=== PATIENT | female | born 1980 | race Caucasian/White ===

== ENCOUNTER 2022-07-16 15:55 | Outpatient (CLI) | payer OTHER, SELFPAY ==
--- NOTE | ~2022-07-16 | XR_ITS ---
EXAMINATION: XR foot LT 2V, XR foot RT 2V DATE: 07/16/2022 16:29 INDICATION: Chronic pain and swelling to the anterior bilateral feet. TECHNIQUE: 1. Dorsoplantar and lateral views of the left foot were obtained. 2. Dorsoplantar and lateral views of the right foot were obtained. COMPARISON: None. FINDINGS: Bone alignment is normal at the bilateral feet. No fractures. Relatively symmetric mild osteoarthriti s at the bilateral first metacarpophalangeal joints and several bilateral tarsometatarsal and interph alangeal joints. No erosions or periosteal reaction. Small right and moderate sized left plantar calc aneal spurs. Soft tissues are unremarkable. IMPRESSION: 1. 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 Reviewed, dictated and finalized at location A. IMPRESSION: 1. 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
== END 2022-07-16 15:56 | disposition home or self-care (01) ==
PROVIDERS: PCP Family Medicine; Visit Provider Family Medicine
DX: M19.071 Primary osteoarthritis, right ankle and foot (principal); M19.072 Primary osteoarthritis, left ankle and foot
CPT/HCPCS: 73620

== ENCOUNTER 2022-09-13 11:01 | Outpatient (CLI) | payer OTHER, SELFPAY ==
--- NOTE | ~2022-09-13 | XR_ITS ---
EXAMINATION: HAND-LUDIVINA ARTHRITIS 3+VIEWS DATE: 09/13/2022 11:25 INDICATION: Arthritis. TECHNIQUE: Posteroanterior, lateral, and oblique views of the left and of the right hands as well as a ballcatchers view of both hands were obtained. COMPARISON: None. FINDINGS: Alignment is normal at both hands. No fracture. Mild osteoarthritis at the bilateral distal radioulna r, left first carpometacarpal and bilateral first metacarpophalangeal and right first interphalangeal joints characterized by mild nonuniform joint space narrowing and/or tiny marginal osteophytes. Ther e is additional joint space narrowing at multiple interphalangeal and metacarpophalangeal joints whic h appears more uniform and without evident osteophytosis which remains equivocal for either osteoarth ritis or inflammatory arthritis. There are however no erosions to more specifically suggest an inflam matory arthritis. There is periarticular soft tissue swelling about many of the proximal interphalang eal joints. IMPRESSION: 1. Joint space narrowing at multiple joints of the bilateral hands and wrists, few with typical distr ibution for osteoarthritis and with either nonuniform joint space narrowing and/or tiny marginal oste ophytes. The joint space narrowing however it and if the metacarpophalangeal and interphalangeal join ts appears more uniform and without appreciable associated osteophytosis, with particular soft tissue swelling but without evident erosions and this could represent additional osteoarthritis but differe ntial would also include nonspecific inflammatory arthritides such as rheumatoid, reactive or psoriat ic arthritis. Reviewed, dictated and finalized at location D. ILE TECH IMPRESSION: 1. Joint space narrowing at multiple joints of the bilateral hands and wrists, few with typical distribution for osteoarthritis and with either nonuniform jerry nt space narrowing and/or tiny marginal osteophytes. The joint space narrowing however it and if the metacarpophalangeal and interphalangeal joints appears mo re uniform and without appreciable associated osteophytosis, with particular so ft tissue swelling but without evident erosions and this could represent additi onal osteoarthritis but differential would also include nonspecific inflammator y arthritides such as rheumatoid, reactive or psoriatic arthritis.
== END 2022-09-13 11:02 | disposition home or self-care (01) ==
LOC: ANHIMG 11:05
PROVIDERS: PCP Family Medicine; Visit Provider Internal Medicine
DX: F17.200 Nicotine dependence, unspecified, uncomplicated (principal); M79.671 Pain in right foot; M79.672 Pain in left foot; R76.8 Other specified abnormal immunological findings in serum
CPT/HCPCS: 73130

== ENCOUNTER 2022-10-15 12:28 | Outpatient (CLI) | payer OTHER, SELFPAY ==
--- NOTE | ~2022-10-15 | MR_ITS ---
EXAMINATION: MR foot LT wo/w con DATE: 10/15/2022 14:55 INDICATION: Left foot pain TECHNIQUE: 1. Magnetic resonance imaging (MRI) of the left foot excluding portions of the posterior aspect of th e hindfoot was performed without and with 15 mL Multihance intravenous contrast. Sequences included s agittal T1-weighted FSE, sagittal fluid sensitive FSE STIR, coronal PD-weighted FS FSE, coronal T1-we ighted FSE, axial PD-weighted FS FSE, axial T2-weighted FSE and axial T1-weighted FS FSE. Postcontras t axial, sagittal and coronal T1-weighted FS FSE were also obtained. 2. MRI of the right foot excludi ng portions of the posterior aspect of the hindfoot was performed without and with 15 mL MultiHance i ntravenous contrast utilizing the same contrast bolus. Sequences included sagittal T1-weighted FSE, s agittal fluid sensitive FSE STIR, coronal PD-weighted FS FSE, coronal T1-weighted FSE, axial PD-weigh ly FS FSE, axial T2-weighted FSE and axial T1-weighted FS FSE. Postcontrast axial, sagittal and kayley nal T1-weighted FS FSE were also obtained. COMPARISON: None FINDINGS: Left foot: Bone alignment is normal. No fracture or pathologic marrow replacing process. Mild to moderate osteoa rthritis with mild subarticular edema-like signal changes at the naviculocuneiform joint. Prominent e nhancing synovitis and 5 x 5 x 5 mm ganglion cyst along the dorsal margin of the navicular cuneiform articulation. Additional mild polyarticular osteoarthritis at the first metatarsophalangeal, the rick culocuneiform and several tarsal metatarsal and interphalangeal joints. Mild tendinopathy and longitu dinal split tearing of the peroneus tertius tendon extending to the fifth toe. There is an intrasubst ance ganglion cyst within the tendon beginning at the level of the talonavicular joint and extending approximately 4.5 cm distally to its insertion at the base of the fourth and fifth metatarsals where there is extensive tendons extension of a couple additional adjacent small ganglion cysts measuring u p to 4 mm in maximal diameter. There is an additional long fusiform ganglion cyst measuring 3.3 cm pr oximal to distal 6 x 4 mm maximal orthogonal dimensions extending along the myotendinous junction of the interosseous muscle between the fourth and fifth metatarsals. The Lisfranc ligament complex as we ll as the collateral ligament complex at the metatarsophalangeal and interphalangeal joints are lore l. Right foot: Bone alignment is normal. No acute fracture or pathologic marrow replacing process. Chronic nonunited fracture at the base of the fifth metatarsal. There is mild osteoarthritis at the naviculocuneiform, tarsal metatarsal, first metatarsophalangeal and several interphalangeal joints. Mild marrow edema i nvolving the small proximal fragment underlying its articulation with the cuboid likely related to se condary osteoarthritis. Additional mild polyarticular osteoarthritis at the first metatarsophalangeal , the naviculocuneiform and several tarsal metatarsal and interphalangeal joints. There is a large pe ripherally enhancing ganglion cyst measuring 3.3 x 1.4 x 1.3 cm arising from the dorsal aspect of the naviculocuneiform articulation. Mild tenosynovitis along the normal-appearing distal peroneus longus tendon. No joint effusions or other abnormal fluid collections. The remaining visualized portions of the flexor and extensor tendons are normal. Lisfranc ligament complex as well as the collateral liga ment complexes at the metatarsophalangeal and interphalangeal joints are normal. Intrinsic musculatur e of the foot is unremarkable. IMPRESSION: 1. Nondisplaced chronic nonunited intra-articular fracture at the lateral base of the first right fif th metatarsal and with secondary osteoarthritis with subarticular edema at the proximal fragment gadeil g its articulation with the cuboid. 2. Tendinopathy and intrasubstance ganglion c
--- NOTE | ~2022-10-15 | MR_ITS ---
EXAMINATION: MR foot LT wo/w con DATE: 10/15/2022 14:55 INDICATION: Left foot pain TECHNIQUE: 1. Magnetic resonance imaging (MRI) of the left foot excluding portions of the posterior aspect of th e hindfoot was performed without and with 15 mL Multihance intravenous contrast. Sequences included s agittal T1-weighted FSE, sagittal fluid sensitive FSE STIR, coronal PD-weighted FS FSE, coronal T1-we ighted FSE, axial PD-weighted FS FSE, axial T2-weighted FSE and axial T1-weighted FS FSE. Postcontras t axial, sagittal and coronal T1-weighted FS FSE were also obtained. 2. MRI of the right foot excluding portions of the posterior aspect of the hindfoot was performed wit hout and with 15 mL MultiHance intravenous contrast utilizing the same contrast bolus. Sequences incl uded sagittal T1-weighted FSE, sagittal fluid sensitive FSE STIR, coronal PD-weighted FS FSE, coronal T1-weighted FSE, axial PD-weighted FS FSE, axial T2-weighted FSE and axial T1-weighted FS FSE. Postc ontrast axial, sagittal and coronal T1-weighted FS FSE were also obtained. COMPARISON: None FINDINGS: Left foot: Bone alignment is normal. No fracture or pathologic marrow replacing process. Mild to moderate osteoa rthritis with mild subarticular edema-like signal changes at the naviculocuneiform joint. Prominent e nhancing synovitis and 5 x 5 x 5 mm ganglion cyst along the dorsal margin of the navicular cuneiform articulation. Additional mild polyarticular osteoarthritis at the first metatarsophalangeal, the rick culocuneiform and several tarsal metatarsal and interphalangeal joints. Mild tendinopathy and longitu dinal split tearing of the peroneus tertius tendon extending to the fifth toe. There is an intrasubst ance ganglion cyst within the tendon beginning at the level of the talonavicular joint and extending approximately 4.5 cm distally to its insertion at the base of the fourth and fifth metatarsals where there is extensive tendons extension of a couple additional adjacent small ganglion cysts measuring u p to 4 mm in maximal diameter. There is an additional long fusiform ganglion cyst measuring 3.3 cm pr oximal to distal 6 x 4 mm maximal orthogonal dimensions extending along the myotendinous junction of the interosseous muscle between the fourth and fifth metatarsals. The Lisfranc ligament complex as we ll as the collateral ligament complex at the metatarsophalangeal and interphalangeal joints are lore l. Right foot: Bone alignment is normal. No acute fracture or pathologic marrow replacing process. Chronic nonunited fracture at the base of the fifth metatarsal. There is mild osteoarthritis at the naviculocuneiform, tarsal metatarsal, first metatarsophalangeal and several interphalangeal joints. Mild marrow edema i nvolving the small proximal fragment underlying its articulation with the cuboid likely related to se condary osteoarthritis. Additional mild polyarticular osteoarthritis at the first metatarsophalangeal , the naviculocuneiform and several tarsal metatarsal and interphalangeal joints. There is a large pe ripherally enhancing ganglion cyst measuring 3.3 x 1.4 x 1.3 cm arising from the dorsal aspect of the naviculocuneiform articulation. Mild tenosynovitis along the normal-appearing distal peroneus longus tendon. No joint effusions or other abnormal fluid collections. The remaining visualized portions of the flexor and extensor tendons are normal. Lisfranc ligament complex as well as the collateral liga ment complexes at the metatarsophalangeal and interphalangeal joints are normal. Intrinsic musculatur e of the foot is unremarkable. IMPRESSION: 1. Nondisplaced chronic nonunited intra-articular fracture at the lateral base of the first right fif th metatarsal and with secondary osteoarthritis with subarticular edema at the proximal fragment gadiel g its articulation with the cuboid. 2. Tendinopathy and intrasubstance ganglion cyst extendi
== END 2022-10-15 12:29 ==
LOC: MICIMG 12:29
PROVIDERS: PCP Family Medicine; Visit Provider Internal Medicine
DX: M79.672 Pain in left foot (principal); S92.354K Nondisplaced fracture of fifth metatarsal bone, right foot, subsequent encounter for fracture with nonunion; X58.XXXD Exposure to other specified factors, subsequent encounter; M19.071 Primary osteoarthritis, right ankle and foot
CPT/HCPCS: 73720; A9577

== ENCOUNTER 2022-12-24 05:55 | Day surgery (SDC) | payer OTHER, SELFPAY ==
[2022-12-14 08:42] VITALS: BMI 29.5
--- NOTE | 2022-12-23 12:24 | WPDANESEPPF ---
Anes - Initial Pre Proc Eval Procedure: Operation Date: 12/24/22 07:30 Proposed Procedures p Removal Fracture Fragment Right Fifth Metatarsal Base - Devonte Valle JR, MD s Peroneal Tendon Repair Right Foot - Devonte Valle JR, MD Date/Time: 12/23/22 12:24 Surgeon: Devonte Valle JR, MD Pre Op Diagnosis: RT 5th Metatarsal Base Frac. & Peroneal Tendopathy Patient Data Age: 42 Gender: F Height: 1.68 m Weight: 83 kg Allergies Allergy/AdvReac Type Severity Reaction Status Date / Time No Known Allergies Allergy Verified 10/18/22 13:18 Home Medications Medication Instructions Recorded Confirmed Type hydroxychloroquine 200 mg tablet 200 mg PO BID #180 tabs 10/18/22 12/24/22 Rx (Plaquenil) Patient hx anesthesia problems: none Family hx anesthesia problems: none Results Review: All pre-operative results and documents have been reviewed as part of the pre-operative evaluation. [facility] Past Medical History Medical History (Updated 12/23/22 @ 12:25 by Jason Stephens DO) IUD (intrauterine device) in place SLE (systemic lupus erythematosus) Family History Family History Father Asthma Mother Depression Son Asthma Social History Social History Social History: Single Smoking packs per day: 0.5 Smoking cigarettes per day: 10.0 Years smoked: 20 Smoking pack-years: 10.00 Smoking status: Current every day smoker Tobacco type: cigarettes Second hand tobacco smoke exposure: No Alcohol intake: current Alcohol use details: OCCASSIONAL Substance use: never Substance use type: does not use Living arrangements: with family Occupation/Education: occupation Gender identity (if verbalized by the patient): Female Sexual Orientation (if Verbalized by the Patient): Straight or Heterosexual Spiritual care concerns: No Anes - Eval Final PreProcedure Day of Procedure 12/23/22 12:24 Patient weight: overweight Heart: regular rate and rhythm Lungs: clear to auscultation Airway: Mallampati scale class II Neurological: alert and oriented Last oral intake: >/= 8 hours ASA classification: III Emergent: no Anesthetic plan: proceed Anesthesia type and monitoring: general ETT and standard monitoring Results Review: All pre-operative results and documents have been reviewed as part of the pre-operative evaluation. Informed Consent: The patient's anesthetic plan and its attendant risks and benefits were discussed with the patient/family/POA. Questions were solicited and answers provided to the satisfaction of the patient/family/POA.
[2022-12-24] VITALS (10 sets, daily range): BP systolic 107–131; BP diastolic 64–88; PULSE 64–73; RESP 12–16; TEMP 36.2–36.7; O2SAT 99–100; BMI 29.2
--- NOTE | ~2022-12-24 | XR_ITS ---
EXAMINATION: XR surgery orthopedic DATE: 12/24/2022 08:15 INDICATION: Fracture fragment removal at the base of the right fifth metatarsal. TECHNIQUE: 2 fluoroscopic images of the right foot were obtained during procedure performed by Dr. Maida park. Radiologist was not present for the imaging or procedure. Total DAP was 7.4 mGycm^2 . COMPARISON: None. FINDINGS: Initial image demonstrates a metallic probe likely for marking projecting over a chronic nonunited fr acture fragment at the lateral base of the fifth metatarsal. Subsequent image demonstrates expected s mall amount of soft tissue gas at the site of the now resected ossicle. IMPRESSION: 1. Fluoroscopy utilized during resection of a chronic nonunited fracture fragment at the lateral base of the right fifth metatarsal. Reviewed, dictated and finalized at location A. ENT STATION ATTENDANT IMPRESSION: 1. Fluoroscopy utilized during resection of a chronic nonunited fracture fragme nt at the lateral base of the right fifth metatarsal.
[2022-12-24] MEDS: LACTATED RINGERS 1,000 ML 30 ML IV CONT ×2 (06:41→08:55)
--- NOTE | 2022-12-24 07:21 | WPDHPUPDATE1 ---
History and Physical Update Update Date/Time: 12/24/22 07:21 History and Physical has been reviewed, including an updated exam of the patient. There are NO changes in the patient's condition. Risks, benefits, and alternatives have been discussed and questions answered. Patient agrees to proceed with procedure.
[2022-12-24] MEDS: ceFAZolin SODIUM 2 GM/20 ML SW SYRINGE IV PUSH (07:23)
[2022-12-24] MEDS: LIDOCAINE HCL 2% LOCAL INJ 20 ML VIAL 10 ML INFILTRATE (08:00)
--- NOTE | 2022-12-24 09:01 | W.PM.PROC2 ---
Procedure Note - Detailed Date of Procedure 12/24/22 Pre-op Diagnosis 1. Right 5th metatarsal base avulsion fracture with a non union 2. Peroneal tendinopaty with longitudinal split tearing Post-op Diagnosis Other (1. Right 5th metatarsal base avulsion fracture with non union 2. Peroneal tenosynovitis right foot) Procedure Performed 1. Removal of non union of an avulsion fracture from the base of the 5th metatarsal right foot with reattachment of the peroneus brevis tendon. 2. Peroneal tenosynovitis right foot Surgeon Devonte Valle JR, DPM Anesthesia General and Local Indications Painful lateral right midfoot Findings 1. Avulsion fracture with fibrous pseudoarthrosis to the 5th metatarsal base 2. No longitudinal tearing of the peroneal tendons, tenosynovitis of the peroneus brevis tendon right foot Description of Procedure PROCEDURE IN DETAIL: Under mild sedation, the patient was brought into the operating room, placed on the operating table in supine position. A pneumatic thigh tourniquet was placed about the patient's ipsilateral limb. Following general anesthesia, a local anesthetic block was obtained about the right leg along the common peroneal nerve and also 4cm proximal to the utilizing 20 cc of a one to one mix of 2% Lidocain plain and 0.5% Marcaine plain. The foot was then scrubbed, prepped, and draped in the usual aseptic manner. An Esmarch bandage was then used to exsanguinate the patient's foot and the pneumatic thigh tourniquet was then inflated. Surgery began in the following manner: Attention was directed to the lateral aspect of the right hindfoot and ankle where a curvilinear incision was made from the lateral malleolus to the 5th metatarsal base. The incision was dissection was continued down to the level of the periosteum and capsular structures overlying the small fracture fragment. The avulsed bone was excised and freed from the peroneus brevis tendon there was a pseudoarthrosis with the 5th metatarsal base. Fluoroscopy was used to make certain that the entire fragment was excised. Next, the tagged distal portion of the peroneus brevis tendon was advanced and secured to the fifth metatarsal base with an Arthrex [place] bone anchor and provided suture. Next the peroneus brevis and longus sheaths were opened and the tendons visualized. No split tearing was noted. No ganglion cyst was noted. Peroneal tenosynovitis was present at the base of the 5th metatarsal portion of the peroneus brevis tendon, this was excised. The wound site was flushed with copious amounts of sterile saline. The peroneal sheath was repaired with 4-0 Vicryl. Next, the subcutaneous structures were reapproximated with 4-0 Vicryl. Next, the skin was reapproximated and coapted utilizing 4-0 Monocryl in running subcuticular suture fashion technique. Upon completion of the procedure, the incision was dressed with Steri-Strips, Adaptic, 4x4s, Kerlix, and Coban. The pneumatic ankle tourniquet was then deflated and a prompt hyperemic response was noted to all digits of the foot. A posterior splint was then applied to the affected lower extremity. It is important to note that Dr. Valle was present throughout the procedure. The patient did very well with the procedure and the anesthesia. She was transferred to the recovery room with vital signs stable and vascular status intact to all toes of the ipsilateral foot. Following a period of postoperative monitoring, the patient will be discharged home on the following written and oral postoperative instructions: 1. Keep the dressing clean, dry, and intact. 2. The patient to be strictly nonweightbearing with a knee scooter or crutches. 3. The patient should ice and elevate the foot when at rest. 4. The patient should contact Dr. Valle for all postop care and if any problems should arise. 5. Prescriptions were written for Percocet 5/325, dispensed 40 to be taken 1 p.o. q.4-6 hours as needed for satya
[2022-12-24] MEDS: fentaNYL CITRATE INJ (*CRX) 100 MCG/2 ML VIAL 25 MCG IV PUSH ×3 (09:17→09:48)
--- NOTE | 2022-12-24 10:23 | SUR.PHASEII ---
1005; PT AWAKE AND ALERT. STATES PAIN TO ANKLE AREA 11/09. FAMILY AT BEDSIDE. PT ASKING WHEN SHE CAN GO HOME.
[2022-12-24] MEDS: oxyCODONE HCL (*CRX) 5 MG TAB IR PO (10:30)
--- NOTE | 2022-12-24 10:32 | SUR.PHASEII ---
OXYCODONE TAKEN PO. INSTRUCTED PT AND FAMILY, NO OXYCODONE FOR 4 HOURS.
--- NOTE | 2022-12-24 10:54 | SUR.PHASEI ---
0900-ice pack applied to area behind right knee- patient resting comfortably on stretcher- carrying on conversation with staff members-brisk capillary refill noted
--- NOTE | 2022-12-24 11:00 | WPDANESPN ---
Anes - Prog Note Post-Op Date/Time: 12/24/22 11:00 Cardiovascular status: normal Respiratory status: normal Airway patency: baseline Mental status: baseline Post-Op hydration status: normal Vital Signs: Last Vital Signs Temp 36.2 C L 12/24/22 08:55 Pulse 64 12/24/22 10:35 Resp 16 12/24/22 10:35 BP 117/70 12/24/22 10:35 Pulse Ox 100 12/24/22 10:02 O2 Del Method Room Air 12/24/22 10:35 O2 Flow Rate 8 12/24/22 08:55 Pain Score (VAS): 0 I/O: Intake & Output 12/23/22 12/24/22 12/24/22 23:59 07:59 15:59 Intake Total 750 Balance 750 Post-procedural complaints: none Patient Feedback: Patient satisfied with anesthetic care. Other Findings: Patient vital signs back to baseline. Patient denies nausea and vomiting. Patient's pain under control. Patient OK for discharge.
== END 2022-12-24 10:42 | disposition home or self-care (01) ==
PROVIDERS: PCP Family Medicine; Visit Provider Podiatrist Foot & Ankle Surgery
PROC: (CPT 28322; principal; 2022-12-24 07:30)
PROC: (CPT 28322; 2022-12-24 07:30)
DX: S92.351K Displaced fracture of fifth metatarsal bone, right foot, subsequent encounter for fracture with nonunion (principal)
CPT/HCPCS: 28322; 28086; 99199

== ENCOUNTER 2024-01-24 13:18 | Outpatient (CLI) | payer OTHER, SELFPAY ==
--- NOTE | ~2024-01-24 | US_ITS ---
EXAMINATION: US pelvic complete DATE: 01/24/2024 13:36 INDICATION: Verify IUD placement. Comparison:No prior studies for comparison. TECHNIQUE: Multiple transabdominal and endovaginal sonographic images of the pelvis performed. FINDINGS: The uterus measures 7.9 x 4.1 x 5 cm. IUD present in the endometrium. The endometrial compl ex measures 4 mm. The right ovary measures 4.1 x 2.9 x 3.5 cm and the left ovary measures 2.5 x 2.2 x 3.3 cm. There ar e small follicles in each ovary. Normal doppler signal in both ovaries. There is no free fluid in the pelvis. There are no abnormal masses seen on either side. IMPRESSION: 1. Unremarkable pelvic ultrasound. IUD in expected position in the endometrium. Reviewed, dictated and finalized at location L.
== END 2024-01-24 13:19 ==
LOC: MICIMG 13:19
DX: T83.32XA Displacement of intrauterine contraceptive device, initial encounter (principal)
CPT/HCPCS: 76856

== ENCOUNTER 2024-03-16 13:33 | Outpatient (CLI) | payer OTHER, SELFPAY ==
--- NOTE | ~2024-03-16 | MM_ITS ---
EXAMINATION: MM screening he BI w be HISTORY: Screening mammogram TECHNIQUE: Craniocaudal and mediolateral oblique 3-D tomosynthesis images were obtained and synthetic 2-D images were generated. CAD analysis was submitted and interpreted. COMPARISON: No prior mammogram is available for comparison at this institution. BREAST PARENCHYMAL COMPOSITION: There are scattered areas of fibroglandular density. FINDINGS: Microcalcifications are noted in the lower central right breast. Diagnostic right mammogram with magnification views is recommended, with ultrasound if required. Otherwise no suspicious mass, architectural distortion, malignant calcification, skin thickening or r etraction of either breast is detected. IMPRESSION: 1. Group microcalcifications, lower central right breast 2. Diagnostic right mammogram with magnification views is recommended, with ultrasound if required BI-RADS Category 0: Incomplete: Needs additional imaging evaluation. Reviewed, dictated and finalized at location B. IMPRESSION: 1. Group microcalcifications, lower central right breast 2. Diagnostic right mammogram with magnification views is recommended, with ult rasound if required BI-RADS Category 0: Incomplete: Needs additional imaging evaluation.
== END 2024-03-16 13:34 ==
LOC: MICIMG 13:33
PROVIDERS: PCP Physician Assistant; Visit Provider Physician Assistant
DX: Z12.31 Encounter for screening mammogram for malignant neoplasm of breast (principal); R92.8 Other abnormal and inconclusive findings on diagnostic imaging of breast
CPT/HCPCS: 77063; 77067

== ENCOUNTER 2024-04-13 07:53 | Outpatient (CLI) | payer OTHER, SELFPAY ==
--- NOTE | ~2024-04-13 | MM_ITS ---
EXAMINATION: MM diagnostic mammo unilat RT HISTORY: Follow-up right breast calcifications TECHNIQUE: Additional 3-D tomosynthesis images of the right breast were performed and synthetic 2-D i mages were generated. CAD analysis was submitted and interpreted. COMPARISON: 03/16/2024 BREAST PARENCHYMAL COMPOSITION: Not dense: There are scattered areas of fibroglandular density. FINDINGS: There is a cluster of pleomorphic calcifications in the lower central aspect of the right b reast, middle third. There are no suspicious areas of architectural distortion. No discrete mass. IMPRESSION: 1. Clustered pleomorphic right breast calcifications lower central right breast middle third. 2. Stereotactic right breast biopsy recommended. BI-RADS category 4, suspicious findings. Reviewed, dictated and finalized at location B.
== END 2024-04-13 07:54 ==
LOC: MICIMG 07:55
PROVIDERS: PCP Family Medicine; Visit Provider Physician Assistant
DX: R92.8 Other abnormal and inconclusive findings on diagnostic imaging of breast (principal)
CPT/HCPCS: 77065

== ENCOUNTER 2024-05-17 09:31 | Outpatient (CLI) | payer OTHER, SELFPAY ==
--- NOTE | ~2024-05-17 | MM_ITS ---
MM post biopsy invasive RT, MM stereotactic specimen RT, MM stereotactic bx RT EXAMINATION: MM post biopsy invasive RT, MM stereotactic specimen RT, MM stereotactic bx RT DATE: Edison Chandler M.D. INDICATION: Abnormal calcifications in the right breast. Stereotactic core biopsy is requested evalu ate for malignancy.] TECHNIQUE AND FINDINGS: The risks and potential benefits of the procedure were discussed with the patient and written informe d consent was obtained. The patient was placed in the prone position clustered at the table with the right breast in caudocranial compression, and the area of interest was localized and targeted utiliz ing digital imaging with stereotaxis. After sterile preparation of the skin, 1% lidocaine was utilized for local anesthesia at the skin pun cture site and 1% lidocaine with epinephrine was utilized for deeper local anesthesia/is about the bi opsy site. A 9G [employer] vacuum assisted biopsy needle was advanced to the level of the calcification o f interest from a caudal approach utilizing stereotactic guidance and a total of 6 tissue core biopsi es were obtained. A specimen radiograph demonstrates that the calcifications of interest are included within the tissue cores. A tissue marker clip was then placed at the biopsy site. The needle was removed and hemosta sis was achieved. The patient tolerated the procedure well and there is no evidence of significant i mmediate complication. The patient was given verbal as well as written postprocedural instructions p rior to discharge from the department. Tissue cores were submitted to surgical pathology for histolo gic analysis. A 2-view right unilateral digital mammogram was obtained post procedure and this demonstrates that th e tissue marker clip is in expected position.] IMPRESSION: 1. Successful stereotactic biopsy of calcifications in the lower central aspect of the right breast, followed by tissue marker clip placement. Please refer to pathology report for histologic analysis. Reviewed, dictated and finalized at location B. IMPRESSION: 1. Successful stereotactic biopsy of calcifications in the lower central aspec t of the right breast, followed by tissue marker clip placement. Please refer to pathology report for histologic analysis. IMPRESSION: 1. Successful stereotactic biopsy of calcifications in the lower central aspec t of the right breast, followed by tissue marker clip placement. Please refer to pathology report for histologic analysis.
== END 2024-05-17 09:32 | disposition home or self-care (01) ==
PROVIDERS: PCP Family Medicine; Visit Provider Surgery
DX: R92.0 Mammographic microcalcification found on diagnostic imaging of breast (principal); R92.8 Other abnormal and inconclusive findings on diagnostic imaging of breast
CPT/HCPCS: 19081; 88305; 88342

== ENCOUNTER 2024-06-13 08:54 | Outpatient (CLI) | payer OTHER, SELFPAY ==
--- NOTE | ~2024-06-13 | US_ITS ---
US breast RT limited 06/13/2024 09:26 Indication: Follow-up intraductal papilloma. Procedure: High-resolution Limited ultrasound of the right breast Comparison: Mammogram dated 04/13/2024 and 05/17/2024. No prior ultrasounds are available for compariso n. Findings: At 8:00, 3.5 cm from the nipple, there is a cystic structure measuring up to 1 cm with inte rnal solid echogenic foci measuring 3 mm. This may correspond to known intraductal papilloma. No othe r masses are identified. Impression: 1: Cystic mass of the right breast at 8:00, 3.5 cm from the nipple with 3 mm solid component. Recomme nd comparison to previous outside ultrasound. BI-RADS CATEGORY 0 - INCOMPLETE STUDY, NEED ADDITIONAL IMAGING EVALUATION. Reviewed, dictated and finalized at location B. Impression: 1: Cystic mass of the right breast at 8:00, 3.5 cm from the nipple with 3 mm so lid component. Recommend comparison to previous outside ultrasound. BI-RADS CATEGORY 0 - INCOMPLETE STUDY, NEED ADDITIONAL IMAGING EVALUATION.
== END 2024-06-13 08:55 ==
LOC: MICIMG 08:55
PROVIDERS: PCP Family Medicine; Visit Provider Surgery
DX: D24.9 Benign neoplasm of unspecified breast (principal); R92.2 Inconclusive mammogram
CPT/HCPCS: 76642

== ENCOUNTER 2025-01-01 08:16 | Outpatient (CLI) | payer OTHER, SELFPAY | END 2025-01-01 08:17 | disposition home or self-care (01) | LOC: MICIMG 08:17 | PROVIDERS: PCP Family Medicine; Visit Provider Surgery | DX: D24.1 Benign neoplasm of right breast (principal); R92.0 Mammographic microcalcification found on diagnostic imaging of breast; R92.8 Other abnormal and inconclusive findings on diagnostic imaging of breast | CPT/HCPCS: 76642; 77061; 77065; G0279 ==

== ENCOUNTER 2025-01-08 09:05 | Outpatient (CLI) | payer OTHER, SELFPAY ==
--- NOTE | ~2025-01-08 | XR_ITS ---
XR finger 1st RT min 2V Ordering provider: Liane Chauhan PA-C History: . M79.89 - Other specified soft tissue disorders . Comparison: None. FINDINGS: BONES: No acute fracture or dislocation. JOINT SPACES: Normal. SOFT TISSUES: Normal. IMPRESSION: No acute osseous abnormality. Reviewed, dictated and finalized at location A.
== END 2025-01-08 09:06 | disposition home or self-care (01) ==
LOC: MICIMG 09:07
PROVIDERS: PCP Family Medicine; Visit Provider Physician Assistant
DX: M79.89 Other specified soft tissue disorders (principal)
CPT/HCPCS: 73140

== ENCOUNTER 2025-03-19 07:06 | Outpatient (CLI) | payer OTHER, SELFPAY ==
--- NOTE | ~2025-03-19 | MR_ITS ---
EXAMINATION: MR foot LT wo con DATE: 03/19/2025 07:47 INDICATION: Left foot ganglion cyst TECHNIQUE: Magnetic resonance imaging (MRI) of the left fore/mid foot was performed without intraveno us contrast. Sequences included sagittal T1-weighted FSE, sagittal fluid sensitive FSE STIR, coronal PD-weighted FS FSE, coronal T1-weighted FSE, axial PD-weighted FS FSE, and axial PD-weighted FSE. Add itional axial PD-weighted FSE, coronal T1-weighted FSE and sagittal fluid sensitive FSE STIR sequence s were obtained of the left ankle, mid and hindfoot. COMPARISON: None FINDINGS: Bone alignment is normal. Normal bone marrow signal throughout with no fracture or pathologic marrow replacing process. 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 The stabiliz ing ligaments at the medial and lateral ankle, the spring ligament complex, Lisfranc ligament complex and collateral ligament complex at the metatarsophalangeal and interphalangeal joints are all normal . The Achilles tendon and remaining flexor tendons of the foot and ankle are normal. There is moderat e tendinopathy with longitudinal split tearing of the peroneus tertius tendon. There is a cluster of elongated intrasubstance ganglion cysts extending within and expanding the distal 5 cm of the tendon to its insertion at the base of the fifth metatarsal. At the same level of the naviculocuneiform zen culation there is an additional small ganglion cyst extending across the dorsal aspect of the otherwi se normal extensor digitorum longus tendons. The anterior tibial extensor hallucis longus tendons are normal. Physiologic amount fluid in the joint spaces. Transit MR osteo foot is unremarkable. IMPRESSION: 1. Moderate tendinopathy with longitudinal split tearing and a few elongated intrasubstance ganglion cysts within the distal 5 cm of the peroneus tertius tendon with additional smaller ganglion cyst ext ending over the dorsum of the extensor digitorum longus tendons. Reviewed, dictated and finalized at location A. IMPRESSION: 1. Moderate tendinopathy with longitudinal split tearing and a few elongated in trasubstance ganglion cysts within the distal 5 cm of the peroneus tertius tend on with additional smaller ganglion cyst extending over the dorsum of the exten sor digitorum longus tendons.
== END 2025-03-19 07:07 | disposition home or self-care (01) ==
LOC: MICIMG 07:07
PROVIDERS: PCP Family Medicine; Visit Provider Podiatrist Foot & Ankle Surgery
DX: M67.472 Ganglion, left ankle and foot (principal)
CPT/HCPCS: 73718

== ENCOUNTER 2025-04-01 01:46 | Day surgery (SDC) | payer OTHER, SELFPAY ==
[2025-03-22 14:47] VITALS: BMI 31.6
[2025-04-01 11:42] VITALS: BP 117/69; PULSE 82; RESP 16; TEMP 36.7; O2SAT 100
[2025-04-01 11:46] LABS: BEDSIDEPREGUCG Negative (Negative)
[2025-04-01] MEDS: LACTATED RINGERS 1,000 ML 150 ML IV CONT (12:01)
--- NOTE | 2025-04-01 12:44 | P.PNAN_ITS ---
Anes - Initial Pre Proc Eval Procedure: Operation Date: 04/01/25 13:00 Proposed Procedures p Colonoscopy - Godwin Miller MD Date/Time: 04/01/25 12:44 Surgeon: Godwin Miller MD Pre Op Diagnosis: Constipation, unspecified Patient Data Age: 44 Gender: F Height: 1.68 m Weight: 90 kg Last Vital Signs Temp 36.7 C 04/01/25 11:42 Pulse 82 04/01/25 11:42 Resp 16 04/01/25 11:42 BP 117/69 04/01/25 11:42 Pulse Ox 100 04/01/25 11:42 O2 Del Method Room Air 04/01/25 11:42 Allergies Allergy/AdvReac Type Severity Reaction Status Date / Time No Known Allergies Allergy Verified 03/22/25 14:37 Home Medications ?Medication ?Instructions ?Recorded ?Confirmed ?Type hydroxychloroquine 200 mg tablet 200 mg PO BID #180 tabs 03/05/24 04/01/25 Rx (Plaquenil) diclofenac sodium 75 mg 75 mg PO BID 11/14/24 04/01/25 History tablet,delayed release folic acid 1 mg tablet 1 mg PO DAILY 11/14/24 04/01/25 History gabapentin 300 mg capsule 300 mg PO QHS 11/14/24 04/01/25 History methotrexate sodium 5 mg tablet 2.5 mg PO WEEKLY 11/14/24 04/01/25 History omeprazole 40 mg capsule,delayed 40 mg PO DAILY 11/14/24 04/01/25 History release linaclotide 145 mcg capsule 145 mcg Capsule#3 Samples 01/16/25 03/22/25 Sample (Linzess) linaclotide 145 mcg capsule 145 mcg PO DAILY 1 month #30 caps 01/16/25 04/01/25 Rx (Linzess) linaclotide 290 mcg capsule 290 mcg Capsule#2 Samples 01/16/25 03/22/25 Sample (Linzess) cyclobenzaprine 10 mg tablet 10 mg PO DAILY 02/05/25 04/01/25 History ixekizumab 80 mg/mL subcutaneous 80 mg subcut MONTHLY 02/05/25 03/22/25 History auto-injector (Taltz Autoinjector) cholecalciferol (vitamin D3) 1,250 125 mcg PO DAILY 03/22/25 04/01/25 History mcg (50,000 unit) capsule duloxetine 60 mg capsule,delayed 60 mg PO DAILY 03/22/25 04/01/25 History release pilocarpine HCl 5 mg tablet 5 mg PO DAILY PRN dry mouth 03/22/25 03/22/25 History prednisone 5 mg tablet 5 mg PO DAILY 03/22/25 04/01/25 History Laboratory Tests 04/01/25 11:42 POC Urine HCG, Qual Negative (Negative) Patient hx anesthesia problems: none Family hx anesthesia problems: none Results Review: All pre-operative results and documents have been reviewed as part of the pre- operative evaluation. [facility] Past Medical History Medical History GERD (gastroesophageal reflux disease) Undifferentiated connective tissue disease SLE (systemic lupus erythematosus) IUD (intrauterine device) in place Surgical History Surgical History No pertinent past surgical history Family History Family History Father Asthma Mother Depression Son Asthma Social History Social History Social History: Single Smoking packs per day: 0.5 Smoking cigarettes per day: 10.0 Years smoked: 20 Smoking pack-years: 10.00 Smoking status: Current every day smoker Tobacco type: cigarettes Second hand tobacco smoke exposure: No Alcohol intake: current Alcohol use details: OCCASSIONAL Substance use: never Substance use type: does not use Do You Feel Safe in your Home?: Yes Lack of Transportation: No Lack of Food: Never True Current Housing: I Have Housing Concerned About Future Housing: No Difficulty Paying Gas/Electric Bills: No Difficulty Paying for Meds: No Currently Unemployed: No Education: Don't Know Difficulty w/ Childcare or Family Care: No Living arrangements: with family Occupation/Education: occupation Gender identity (if verbalized by the patient): Female Sexual Orientation (if Verbalized by the Patient): Straight or Heterosexual Spiritual care concerns: No Anes - Eval Final PreProcedure Day of Procedure 04/01/25 12:44 Patient weight: obese Heart: regular rate and rhythm Lungs: clear to auscultation Airway: Mallampati scale class II Neurological: alert and oriented Last oral intake: >/= 8 hours ASA classification: III Emergent: no Anesthetic plan: proceed Anesthesia type and monitoring: general GIVS and standard monitoring Results Review: All pre-operative results and documents have been reviewed as part of the pre- operative evaluation. Informed Consent: The patient's anesthetic plan and its attendant risks and benefits were discussed with the patient/family/POA. Questions were solicited and answers provided to the satisfaction of the patient/family/POA.
--- NOTE | 2025-04-01 13:10 | PM.HPGS ---
History of Present Illness History of Present Illness Consent: Risks, benefits, and alternatives have been discussed and questions answered. Patient agrees to proceed with procedure. Chief complaint: Constipation, unspecified Narrative: Brandie Valdes is a 44 year old female here for first colonoscopy, h/o constipation Review of Systems Review of Systems: All systems reviewed & are unremarkable except as noted in HPI and below PMFSH Past Medical History Medical History GERD (gastroesophageal reflux disease) Undifferentiated connective tissue disease SLE (systemic lupus erythematosus) IUD (intrauterine device) in place Surgical History Surgical History No pertinent past surgical history Family History Family History Father Asthma Mother Depression Son Asthma Social History Social History Social History: Single Smoking packs per day: 0.5 Smoking cigarettes per day: 10.0 Years smoked: 20 Smoking pack-years: 10.00 Smoking status: Current every day smoker Tobacco type: cigarettes Second hand tobacco smoke exposure: No Alcohol intake: current Alcohol use details: OCCASSIONAL Substance use: never Substance use type: does not use Do You Feel Safe in your Home?: Yes Lack of Transportation: No Lack of Food: Never True Current Housing: I Have Housing Concerned About Future Housing: No Difficulty Paying Gas/Electric Bills: No Difficulty Paying for Meds: No Currently Unemployed: No Education: Don't Know Difficulty w/ Childcare or Family Care: No Living arrangements: with family Occupation/Education: occupation Gender identity (if verbalized by the patient): Female Sexual Orientation (if Verbalized by the Patient): Straight or Heterosexual Spiritual care concerns: No Meds Home Medications and Allergies Home Medications ?Medication ?Instructions ?Recorded ?Confirmed ?Type hydroxychloroquine 200 mg tablet 200 mg PO BID #180 tabs 03/05/24 04/01/25 Rx (Plaquenil) diclofenac sodium 75 mg 75 mg PO BID 11/14/24 04/01/25 History tablet,delayed release folic acid 1 mg tablet 1 mg PO DAILY 11/14/24 04/01/25 History gabapentin 300 mg capsule 300 mg PO QHS 11/14/24 04/01/25 History methotrexate sodium 5 mg tablet 2.5 mg PO WEEKLY 11/14/24 04/01/25 History omeprazole 40 mg capsule,delayed 40 mg PO DAILY 11/14/24 04/01/25 History release linaclotide 145 mcg capsule 145 mcg Capsule#3 Samples 01/16/25 03/22/25 Sample (Linzess) linaclotide 145 mcg capsule 145 mcg PO DAILY 1 month #30 caps 01/16/25 04/01/25 Rx (Linzess) linaclotide 290 mcg capsule 290 mcg Capsule#2 Samples 01/16/25 03/22/25 Sample (Linzess) cyclobenzaprine 10 mg tablet 10 mg PO DAILY 02/05/25 04/01/25 History ixekizumab 80 mg/mL subcutaneous 80 mg subcut MONTHLY 02/05/25 03/22/25 History auto-injector (Taltz Autoinjector) cholecalciferol (vitamin D3) 1,250 125 mcg PO DAILY 03/22/25 04/01/25 History mcg (50,000 unit) capsule duloxetine 60 mg capsule,delayed 60 mg PO DAILY 03/22/25 04/01/25 History release pilocarpine HCl 5 mg tablet 5 mg PO DAILY PRN dry mouth 03/22/25 03/22/25 History prednisone 5 mg tablet 5 mg PO DAILY 03/22/25 04/01/25 History Allergies Allergy/AdvReac Type Severity Reaction Status Date / Time No Known Allergies Allergy Verified 03/22/25 14:37 Vital Signs Vital Signs - 24 hr 04/01/25 11:42 Temperature 98.0 F Pulse Rate 82 Respiratory Rate 16 Blood Pressure 117/69 Pulse Oximetry 100 Oxygen Delivery Room Air Exam Const: General: comfortable and no acute distress HENMT: Face/Nose/Sinus: Normal nares present Eyes: General: appearance normal, both eyes and all related structures Neck: Neck: no JVD Resp: Auscultation: clear to auscultation bilaterally Cardio: Rate: regular rate Rhythm: regular rhythm GI: Inspection: non-distended GI Palp: Yes Soft to palpation Skin: General skin exam: normal color Neuro: General: gait normal Speech: normal speech Extrem: General: normal to inspection Psych: Mental Status: mental status grossly normal Assessment and Plan Assessment and plan (1) Constipation: Code(s): K59.00 - Constipation, unspecified Status: Acute Assessment and Plan: colonoscopy
[2025-04-01 13:30] VITALS: BP 95/64; PULSE 75; RESP 21; O2SAT 100
[2025-04-01 13:40] VITALS: BP 106/66; PULSE 72; RESP 19; O2SAT 100
[2025-04-01 13:50] VITALS: BP 114/71; PULSE 66; RESP 19; O2SAT 100
== END 2025-04-01 13:54 | disposition home or self-care (01) ==
PROVIDERS: Anesthesiology; PCP Family Medicine; Referring Provider Nurse Practitioner Family; Visit Provider Internal Medicine Gastroenterology
PROC: 0DJD8ZZ Inspection of Lower Intestinal Tract, Via Natural or Artificial Opening Endoscopic (ICD-10-PCS; CPT 45378; principal; 2025-04-01 13:00)
DX: K64.8 Other hemorrhoids (principal); K57.30 Diverticulosis of large intestine without perforation or abscess without bleeding; K21.9 Gastro-esophageal reflux disease without esophagitis; M32.9 Systemic lupus erythematosus, unspecified; F17.210 Nicotine dependence, cigarettes, uncomplicated; E66.9 Obesity, unspecified; Z68.32 Body mass index [BMI] 32.0-32.9, adult; Z79.52 Long term (current) use of systemic steroids
CPT/HCPCS: 45378; J2704; J7120